=== PATIENT | female | born 1965 | race Caucasian/White ===

== ENCOUNTER 2025-02-20 11:55 | Day surgery (SDC) | payer OTHER ==
[~2025-02-20] VITALS: Ht 177.8 cm; Wt 93.2 kg
[~2025-02-20 11:55] MED LIST: IBLOOD GLUCOSE TEST STRIP 1 EA TEST VI PRN; LACTATED RINGER'S 1,000 ML IV SCH; LIDOCAINE HCL 1% 5 ML SDV INJ ONE; MIDAZOLAM HCL 5 MG/5 ML VIAL IV PRN; MULTI VITAMIN1 EACH PO; VITAMIN C1000 MG PO; fentaNYL citrate 100 MCG/2 ML VIAL IV PRN
[2025-02-20 12:18] VITALS: BP 117/66
[2025-02-20] MEDS ORDERED: fentaNYL citrate 100 MCG/2 ML VIAL ONE (13:33)
[2025-02-20] MEDS ORDERED: MIDAZOLAM HCL 5 MG/5 ML VIAL ONE (13:33)
--- NOTE | 2025-02-20 14:20 | NUR ---
02/20/25 1420 Kristine Quintana 1414-PATIENT ARRIVED TO PACU ON 2L NC RR EVEN. PATIENT AWAKE LAYING DROWSY LAYING LEFT LATERAL ABDOMEN SOFT. ORIENTED TO PACU. SINUS BRADYCARDIA HR 50'S. IVF INFUSING. ENCOURAGED TO PASS GAS. PATIENT CLOSES EYES.
[2025-02-20 15:03] VITALS: BP 121/67
--- NOTE | 2025-02-21 09:54 | OR ---
[facility] [address], [place] [address] Signed DATE OF OPERATION: 02/20/2025 SURGEON: Jimmie Eaton MD PREOPERATIVE DIAGNOSIS: Colon screening. POSTOPERATIVE DIAGNOSIS: Normal colon to cecum. PROCEDURE: Total colonoscopy to cecum. ANESTHESIA: Intravenous sedation fentanyl 100 mcg and Versed 5 mg. INDICATION: This 59-year-old white woman is a patient of Dr. Cassie Li. The patient underwent colonoscopy in [place], [place] approximately 10 years ago. She is recommended to have repeat in 10 years. She has no current symptoms of bleeding, diarrhea, or constipation and no family history of colon cancer. She is admitted at this time to undergo screening colonoscopy, understands the risk of bleeding, infection, and perforation. FINDINGS: The prep was excellent. Complete colonoscopy was undertaken of the cecum. Full intubation of the cecum was accomplished. There was no evidence of polyps, diverticular formation, colitis, or cancer. DESCRIPTION OF PROCEDURE: The patient was brought to the endoscopy suite and placed in lateral decubitus position, given intravenous sedation to the point of slurred speech and nystagmus. Digital rectal examination was normal. An Olympus video colonoscope was passed in the rectum and manipulated throughout the colon ultimately intubating the cecum itself. The ileocecal valve and appendiceal orifice were normal. The scope was withdrawn from that point of examination throughout showed no sign of abnormality specifically no polyps, diverticular formation, colitis, or cancer. Retroflexed view was normal as well. Scope was removed. She was taken to recovery room in good condition. Electronically Signed By: JIMMIE EATON MD 02/21/25 0954 PATIENT NAME: NETTA CARDOSO OPERATIVE REPORT DATE OF : 63 REPORT #: [id number] PHYSICIAN: JIMMIE EATON MD PCP: CASSIE LI MD REPORT IS CONFIDENTIAL AND NOT TO BE RELEASED WITHOUT AUTHORIZATION [facility] [address] [place] [id number] Signed CONCLUDING DIAGNOSIS: Normal colon to cecum. PLAN: Recommend repeat colonoscopy in 10 years, sooner if symptoms should develop. She will return to the ongoing care of Cassie Li MD. MD KINZA Gu/AYOL /[id number] cc: Cassie Li MD Copies: ~ Electronically Signed By: JIMMIE EATON MD 02/21/25 0954 PATIENT NAME: NETTA CARDOSO OPERATIVE REPORT DATE OF : 63 REPORT #: [id number] PHYSICIAN: JIMMIE EATON MD PCP: CASSIE LI MD REPORT IS CONFIDENTIAL AND NOT TO BE RELEASED WITHOUT AUTHORIZATION
== END 2025-02-20 15:10 | disposition home or self-care (01) ==
LOC: DS 11:55 → OPS 11:55 → DS 13:00 → OPS 15:10
PROVIDERS: ATTEND Surgery
PROC: 0DJD8ZZ Inspection of Lower Intestinal Tract, Via Natural or Artificial Opening Endoscopic (ICD-10-PCS; principal; 2025-02-20 13:00)
DX: Z12.11 Encounter for screening for malignant neoplasm of colon (principal); Z98.890 Other specified postprocedural states
CPT/HCPCS: 99153; G0500; J2250; J3010